=== PATIENT | male | born 1995 | race Caucasian/White ===

== ENCOUNTER 2017-11-24 10:50 | Emergency (ER) | payer OTHER ==
[2017-11-24 11:18] VITALS: BP 144/78
--- NOTE | 2017-11-24 11:28 | UC ---
Respiratory Complaint HPI - HPI Summary HPI Summary: Pt presents with dry cough. He tells me that for the last week he has had a dry cough and that yesterday his girlfriend was diagnosed with PNA. He has a history of asthma and is currently out of his albuterol inhaler. He tells me that he feels a little short of breath. Denies fever, chills, chest pain, abdominal pain, n/v/d/c, headache, or dizziness. - History of Current Complaint Chief Complaint: UCGeneralIllness Stated Complaint: COUGH WHEEZING Time Seen by Provider: 11/24/17 11:24 Hx Obtained From: Patient Onset/Duration: Gradual Onset Timing: Constant Pain Intensity: 0 Character: Cough: Nonproductive - Allergies/Home Medications Allergies/Adverse Reactions: Allergies Allergy/AdvReac Type Severity Reaction Status Date / Time azithromycin Allergy Intermediate Hives Verified 11/24/17 11:10 PMH/Surg Hx/FS Hx/Imm Hx Previously Healthy: Yes Respiratory History: Asthma - Surgical History Surgical History: None - Family History Known Family History: Positive: Unknown - Social History Occupation: Employed Full-time Lives: With Family Alcohol Use: Weekly Alcohol Amount: few times a week Substance Use Type: Marijuana Smoking Status (MU): Light Every Day Tobacco Smoker - Immunization History Most Recent Tetanus Shot: UTD Review of Systems Constitutional: Negative Skin: Negative Eyes: Negative ENT: Negative Respiratory: Shortness Of Breath, Cough Cardiovascular: Negative Gastrointestinal: Negative Musculoskeletal: Negative Neurological: Negative Psychological: Negative All Other Systems Reviewed And Are Negative: Yes Physical Exam Triage Information Reviewed: Yes Appearance: Well-Appearing, No Pain Distress, Well-Nourished Vital Signs: Initial Vital Signs Temp 98.1 F 11/24/17 11:13 Pulse 79 11/24/17 11:13 Resp 22 11/24/17 11:13 BP 144/78 11/24/17 11:13 Pulse Ox 96 11/24/17 11:13 Vital Signs Reviewed: Yes Eyes: Positive: Conjunctiva Clear. Negative: Conjunctiva Inflamed, Discharge ENT: Positive: Hearing grossly normal, Pharynx normal, TMs normal, Uvula midline. Negative: Pharyngeal erythema, Nasal congestion, Nasal drainage, TM bulging, TM dull, TM red, Tonsillar swelling, Tonsillar exudate, Hoarse voice, Sinus tenderness Neck: Positive: Supple, Nontender, No Lymphadenopathy Respiratory: Positive: Lungs clear, No respiratory distress, No accessory muscle use, Wheezing - Moderate throughout Cardiovascular: Positive: RRR, No Murmur, Pulses Normal Neurological: Positive: Alert Psychological: Positive: Age Appropriate Behavior Skin: Negative: rashes UC Diagnostic Evaluation - Laboratory O2 Sat by Pulse Oximetry: 96 Re-Evaluation - Re-Evaluation First Eval Re-Evaluation Time: 12:28 Change: Improved Comment: Pt reports improved breathing and less wheezing. Lung sounds significantly improved, but still with mild wheezing throughout Respiratory Course/Dx - Course Course Of Treatment: Duoneb - improved after. CXR: IMPRESSION: No radiographic evidence of acute cardiopulmonary disease. Rx for albuterol inhaler and prednisone - Differential Dx/Diagnosis Provider Diagnoses: Asthma exacerbation Discharge - Discharge Plan Condition: Stable Disposition: HOME Prescriptions: Albuterol HFA INHALER* [Ventolin HFA Inhaler*] 1 - 2 puff INH Q6H PRN #1 mdi PRN Reason: Wheezing predniSONE TAB* [Deltasone TAB*] 50 mg PO DAILY #5 tab Patient Education Materials: Asthma (DC) Referrals: No Primary Care Phys,NOPCP [Primary Care Provider] - Additional Instructions: If you develop a fever, shortness of breath, chest pain, new or worsening symptoms - please call your PCP or go to the ED. Your blood pressure was high at todays visit. Please see your primary provider within 4 weeks for recheck and re-evaluation.
[2017-11-24] MEDS ORDERED: Albuterol/Ipratropium NEB.SOL* Albuterol 2.5 MG/Ipratropium 0.5 MG 3 ML INH ONE (11:48)
--- NOTE | 2017-11-24 12:04 | RAD ---
INDICATION: Cough COMPARISON: Chest x-ray dated January 31, 2013 TECHNIQUE: PA and lateral views of the chest were obtained. FINDINGS: The heart and mediastinum are normal in size and contour. The lungs are grossly clear. There is no evidence of large pleural effusion. Visualized bones are normal for the patient's age. There is no radiographic evidence of free air beneath the diaphragm IMPRESSION: No radiographic evidence of acute cardiopulmonary disease.
== END 2017-11-24 13:20 | disposition home or self-care (01) ==
LOC: UCEAST 10:50
DX: J45.901 Unspecified asthma with (acute) exacerbation (principal); R05 Cough; Z88.1 Allergy status to other antibiotic agents; F17.200 Nicotine dependence, unspecified, uncomplicated
CPT/HCPCS: 71046; 99212; A9270-GY; G0463